=== PATIENT | female | born 1975 | race Hispanic/Latino ===

== ENCOUNTER 2021-07-27 13:43 | Emergency (ER) | payer OTHER ==
[~2021-07-27] VITALS: Ht 160 cm; Wt 116.6 kg
[2021-07-27 13:45] VITALS: BP 137/78
== END 2021-07-27 14:28 | disposition home or self-care (01) ==
LOC: EDH 13:43
DX: L03.115 Cellulitis of right lower limb (principal); E66.9 Obesity, unspecified; Z68.41 Body mass index [BMI] 40.0-44.9, adult
CPT/HCPCS: 99281

== ENCOUNTER 2021-12-19 16:34 | Emergency (ER) | payer OTHER ==
[~2021-12-19] VITALS: Ht 160 cm; Wt 107.0 kg
[2021-12-19] MEDS ORDERED: CYCLOBENZAPRINE HCL 10 MG TABLET PO ONE (17:30)
[2021-12-19] MEDS ORDERED: KETOROLAC 60 MG VIAL (30MG/ML) IM ONE (17:30)
[2021-12-19] MEDS ORDERED: TRIAMCINOLONE ACETONIDE 40 MG/ML 1ML VIAL SQ ONE (17:30)
[2021-12-19] MEDS ORDERED: BUPIVACAINE/PF 0.5% 30ML VIAL INJ ONE (17:30)
[2021-12-19 18:00] VITALS: BP 122/72
[2021-12-19] MEDS ORDERED: CYCL10TA16 PO (18:12)
[2021-12-19] MEDS ORDERED: NAPR-1180 PO (18:12)
== END 2021-12-19 18:15 | disposition home or self-care (01) ==
LOC: EDH 16:34
DX: M70.62 Trochanteric bursitis, left hip (principal); E66.9 Obesity, unspecified; Z68.41 Body mass index [BMI] 40.0-44.9, adult; Z79.1 Long term (current) use of non-steroidal anti-inflammatories (NSAID)
CPT/HCPCS: 99284; 96372; 20610; J3301; J1885; 96374

== ENCOUNTER → 2022-04-03 | Outpatient (CLI) | payer OTHER ==
[~2022-04-03] MED LIST: CYCL10TA16 PO; NAPR-1180 PO
== END | disposition home or self-care (01) ==
LOC: RAH 11:46
PROVIDERS: ATTEND Internal Medicine
DX: S86.911A Strain of unspecified muscle(s) and tendon(s) at lower leg level, right leg, initial encounter (principal); M17.11 Unilateral primary osteoarthritis, right knee; M16.12 Unilateral primary osteoarthritis, left hip; M25.552 Pain in left hip; X58.XXXA Exposure to other specified factors, initial encounter; Y93.89 Activity, other specified; Y92.89 Other specified places as the place of occurrence of the external cause; Y99.8 Other external cause status
CPT/HCPCS: 73502; 73560